=== PATIENT | male | born 1990 | race Caucasian/White ===

== ENCOUNTER 2017-12-15 07:42 | Day surgery (SDC) | payer OTHER ==
[~2017-12-15] VITALS: Ht 185.4 cm; Wt 91.9 kg
[~2017-12-15 07:42] MED LIST: BUPIVAC MPF-EPI 0.5%-1:200000 30 ML VIAL. ONE; HYDROmorphone 2 MG/ML VIAL IV PRN; IBUP200T77 PO; IV RINGERS,LACTATED 1000ML 1,000 ML IV SCH; LIDOCAINE 1% PF 2 ML VIAL. ID PRN; MORPHINE SULFATE 2 MG/ML VIAL. IV PRN; ONDANSETRON PF 4 MG/2 ML VIAL. IV PRN; PROCHLORPERAZINE 10 MG/2 ML VIAL. IV PRN; fentaNYL PF VIAL 100 MCG/2 ML VIAL IV PRN
[2017-12-15] MEDS ORDERED: MIDAZOLAM HCL/PF 2 MG/2 ML VIAL. ONE (08:30)
[2017-12-15] MEDS ORDERED: ROCURONIUM 50 MG/5 ML VIAL. ONE (08:31)
[2017-12-15] MEDS ORDERED: fentaNYL PF VIAL 250 MCG/5 ML VIAL ONE (08:31)
[2017-12-15] MEDS ORDERED: PROPOFOL 20 ML IV ONE (08:31)
[2017-12-15] MEDS ORDERED: SEVOFLURANE 61 TO 120 MINUTES. IH ONE (08:31)
[2017-12-15] MEDS ORDERED: ONDANSETRON PF 4 MG/2 ML VIAL. ONE (08:31)
[2017-12-15] MEDS ORDERED: DEXAMETHASONE SOD PHOS 20 MG/5 ML VIAL. ONE (08:31)
[2017-12-15] MEDS ORDERED: LIDOCAINE 2% PF Vial for OR 5 ML VIAL. ONE (08:31)
[2017-12-15] MEDS ORDERED: GLYCOPYRROLATE 1 MG/5 ML VIAL. ONE (09:39)
[2017-12-15] MEDS ORDERED: NEOSTIGMINE METHYLSULFATE 5 MG/5 ML SYRINGE. ONE (09:39)
--- NOTE | 2017-12-15 09:46 | PDOC4 ---
Operative Note Operative Note Date: 12/15/2017 Preoperative diagnosis: Left inguinal hernia Postoperative diagnosis: Same Procedure: Robotic-assisted laparoscopic left inguinal hernia repair with mesh Surgeon: Owen Specimen: None Dictation: Patient is a 27-year-old male is complaining of a painful bulge in his left groin ultrasound did show small left inguinal hernia incarcerated with fat. The procedure of robotic-assisted laparoscopic left inguinal hernia repair with mesh was explained to the patient detail was benefits were also discussed including bleeding infection injury to intra-abdominal contents possibly necessitating further or open operations. Alternatives to this procedure also discussed with patient seemed understanding gave both verbal and written consent to have the procedure performed. Patient was taken to the operating room placed in supine position general anesthesia was initiated once patient was asleep and intubated his placed in low lithotomy positioning and his abdomen was prepped and draped usual sterile fashion using ChloraPrep at this point an area just above the umbilicus injected with quarter percent Marcaine with epinephrine incisions made lead blade scalpel and a varies needle was placed within the abdomen creating pneumoperitoneum. Once this complete a 8 mm da Dhara port was placed within the abdomen and then the da Dhara camera was placed within the abdomen which was inspected no other abnormalities were noted. A 8 mm da Dahra port was placed in the left lateral abdomen and one in the right lateral abdomen under direct visualization at this point the da Dhara robot was brought in and docked all port sites. At this point the surgeon went to the robotic console using grasper and Endo Christopher scissors the peritoneum was incised of the left pelvic floor this window was propagated as well as reducing the hernia contents on the left side once this was complete a Bard 3-D max mesh medium size for the left was placed over the floor the pelvis on the left side the peritoneum was then closed over the mesh with a running 2-0V lock suture. The pneumoperitoneum was reduced all ports removed the da Dhara robot undocked the skin incisions were all closed with 4 septic or Monocryl Mastisol Steri-Strips and island dressings were applied. Patient was waken next made in the operating room taken recovery in stable condition all sponge instrument needle counts listed as correct estimated blood loss 5 mL MARIANA MCCLAIN MD Dec 15, 2017 09:46
--- NOTE | 2017-12-15 09:47 | DISCH ---
DISCHARGE INSTRUCTIONS Condition on Discharge Condition on Discharge: Stable Activity After Discharge Activity Instructions for Disc: Avoid exertion Other activity instructions: no lifting more than 20 pounds for 2 weeks Diet after Discharge Diet after Discharge: Regular Wound Incision Care Other wound/incision instructi: May shower in 24 hours Contacting the DRWillie after DC Call your doctor for: If your condition worsens Follow-Up Follow up with: Dr. Mcclain in 2 weeks MARIANA MCCLAIN MD Dec 15, 2017 09:47
[2017-12-15] MEDS ORDERED: OXYC-323 PO (10:15)
[2017-12-15] MEDS ORDERED: oxyCODONE/APAP 5/325 1 TAB TABLET PO ONE (10:15)
[2017-12-15 11:12] VITALS: BP 140/46
== END 2017-12-15 11:54 | disposition home or self-care (01) ==
LOC: SURG 07:42
PROVIDERS: ATTEND Surgery
DX: K40.30 Unilateral inguinal hernia, with obstruction, without gangrene, not specified as recurrent (principal); Z98.890 Other specified postprocedural states; Z87.891 Personal history of nicotine dependence
CPT/HCPCS: 49650; A7015; C1781; J0690; J1100; J2001; J2250; J2405; J2704; J2710; J3010; J3490; J7120; S2900